=== PATIENT | male | born 1985 | race Two or more races ===

== ENCOUNTER 2018-01-09 08:05 | Outpatient (CLI) | payer BC | END 2018-01-09 23:59 | disposition home or self-care (01) | LOC: WOU 08:05 | PROVIDERS: ATTEND Podiatrist Foot & Ankle Surgery | DX: M77.51 Other enthesopathy of right foot and ankle (principal); M70.871 Other soft tissue disorders related to use, overuse and pressure, right ankle and foot; X50.9XXA Other and unspecified overexertion or strenuous movements or postures, initial encounter; Y93.79 Activity, other specified sports and athletics; Y92.89 Other specified places as the place of occurrence of the external cause; R60.0 Localized edema; M25.871 Other specified joint disorders, right ankle and foot | CPT/HCPCS: G0463 ==

== ENCOUNTER 2018-01-30 11:24 | Outpatient (CLI) | payer BC ==
[2018-01-30] MEDS ORDERED: DEXAMETHASONE SOD PHOSPHATE 4 MG/ML VIAL IJ ONE (12:00)
[2018-01-30] MEDS ORDERED: ETHYL CHLORIDE SPRAY 1 EA BOTTLE TP ONE (12:00)
[2018-01-30] MEDS ORDERED: BUPIVACAINE 0.25% 75 MG/30 ML VIAL IJ ONE (12:00)
== END 2018-01-30 23:59 | disposition home or self-care (01) ==
LOC: WOU 11:24
PROVIDERS: ATTEND Podiatrist Foot & Ankle Surgery
DX: M65.871 Other synovitis and tenosynovitis, right ankle and foot (principal); M77.51 Other enthesopathy of right foot and ankle; R60.0 Localized edema; Z88.0 Allergy status to penicillin
CPT/HCPCS: 20550; J1100; J3490

== ENCOUNTER 2018-03-19 08:42 | Outpatient (CLI) | payer BC | END 2018-03-19 23:59 | disposition home or self-care (01) | LOC: WOU 08:42 | PROVIDERS: ATTEND Podiatrist Foot & Ankle Surgery | DX: M77.51 Other enthesopathy of right foot and ankle (principal); M25.871 Other specified joint disorders, right ankle and foot; R60.0 Localized edema | CPT/HCPCS: 99213; Z7610; G0463 ==

== ENCOUNTER → 2018-04-05 | Outpatient (CLI) | payer BC | END | disposition home or self-care (01) | LOC: MRI 10:51 | PROVIDERS: ATTEND Podiatrist Foot & Ankle Surgery | DX: M25.871 Other specified joint disorders, right ankle and foot (principal); M77.51 Other enthesopathy of right foot and ankle | CPT/HCPCS: 73718-TC ==

== ENCOUNTER 2018-04-24 12:57 | Outpatient (CLI) | payer BC ==
[2018-04-24] MEDS ORDERED: DEXAMETHASONE SOD PHOSPHATE 4 MG/ML VIAL IM PRN (13:30)
[2018-04-24] MEDS ORDERED: ETHYL CHLORIDE SPRAY 1 EA BOTTLE TP ONE (13:30)
== END 2018-04-24 23:59 | disposition home or self-care (01) ==
LOC: WOU 12:57
PROVIDERS: ATTEND Podiatrist Foot & Ankle Surgery
DX: M25.871 Other specified joint disorders, right ankle and foot (principal); M65.871 Other synovitis and tenosynovitis, right ankle and foot
CPT/HCPCS: A6402; J1100; J3490; Z7610

== ENCOUNTER 2018-05-31 12:51 | Outpatient (CLI) | payer BC ==
[2018-05-31] MEDS ORDERED: ETHYL CHLORIDE SPRAY 1 EA BOTTLE TP PRN (13:00)
[2018-05-31] MEDS ORDERED: DEXAMETHASONE SOD PHOSPHATE 4 MG/ML VIAL IJ PRN (13:00)
[2018-05-31] MEDS ORDERED: LIDOCAINE 1% INJ 50 ML MDV IJ PRN (13:00)
== END 2018-05-31 23:59 | disposition home or self-care (01) ==
LOC: WOU 12:51
PROVIDERS: ATTEND Podiatrist Foot & Ankle Surgery
DX: M25.871 Other specified joint disorders, right ankle and foot (principal); R60.0 Localized edema; M79.671 Pain in right foot
CPT/HCPCS: G0463; J1100; J3490; Z7610